=== PATIENT | female | born 1995 | race African-American/Black ===

== ENCOUNTER 2020-04-17 14:53 | Emergency (ER) | payer MEDICAID ==
[~2020-04-17] VITALS: Ht 167.6 cm; Wt 63.5 kg
[2020-04-17 14:57] VITALS: Ht 167.6 cm; Wt 63.5 kg
[2020-04-17 15:47] LABS: microscopic required? NO
[2020-04-17 16:09] LABS: BASOPHIL % 0.4 % (0-2); CALCIUM 9.1 mg/dL (8.5-10.1); CARBON DIOXIDE 25.4 mmol/L (21-32); CHLORIDE SERUM 105 mmol/L (98-107); CREATININE SERUM 1.3 mg/dL (0.6-1.0); GFR1 53 mL/min; GLUCOSE SERUM 124 mg/dL (74-106); PLATELET COUNT 331 x10^3mcL (130-400); POTASSIUM SERUM 3.9 mmol/L (3.5-5.1); SODIUM SERUM 140 mmol/L (136-145)
[2020-04-17 16:13] LABS: ALKALINE PHOSPHATASE 56 U/L (46-116); ALT/SGPT 21 U/L (14-59); AST/SGOT 26 U/L (15-37); BILIRUBIN TOTAL 0.3 mg/dL (0.20-1.00); TOTAL PROTEIN, SERUM 7.8 g/dL (6.4-8.2)
[2020-04-17 16:24] LABS: UA SPECIFIC GRAVITY 1.025 (1.005-1.035); urine erythrocyte NEGATIVE (NEGATIVE)
[2020-04-17 16:31] LABS: RED CELL DISTRIBUTION WIDTH 15.5 % (11.5-14.5)
[2020-04-17 16:37] LABS: AMPHETAMINE QUAL UR POSITIVE (See below)
[2020-04-19 13:36] VITALS: BP 117/60
== END 2020-04-19 13:36 | disposition home or self-care (01) ==
LOC: ED 14:53
PROVIDERS: Specialist
DX: F19.10 Other psychoactive substance abuse, uncomplicated (principal); R45.1 Restlessness and agitation; Z20.828 Contact with and (suspected) exposure to other viral communicable diseases
CPT/HCPCS: G0480; J1630; J2060; J7030; U0003